=== PATIENT | male | born 1950 | race Caucasian/White ===

== ENCOUNTER 2019-12-24 17:03 | Emergency (ER) | payer MEDICARE ==
--- OUTSIDE RECORDS SUMMARY | 2019-12-24 17:05 | XMS REPORT ---
:1950 Author Organization [employer] Care Team Providers Name Role Phone Justin Petersen Provider Role Unavailable Allergies, Adverse Reactions, Alerts Substance Reaction Event Type N.K.D.A. Info Not Available Non Drug Allergy Problems Problem Type Condition Code Onset Dates Condition Status Problem Piriformis syndrome of left side G57.02 Active Problem Sciatica of left side M54.32 Active Assessment Piriformis syndrome of left side G57.02 Active Assessment Pain of left hip joint M25.552 Active Assessment Sciatica of left side M54.32 Active Medications Medication Code System Code Instructions Start Date End Date Status Dosage Allopurinol [facility] 76020-494 Active not defined 11-07 Lisinopril [facility] 63224-845 Active not defined - Bisoprolol [facility] 84690-936 Active not defined Fumarate 1- Results No Known Results Summary Purpose [employer] Submission
[2019-12-24] MEDS ORDERED: ONDANSETRON 4 MG/2 ML VIAL ONE (17:14)
[2019-12-24] MEDS ORDERED: MORPHINE 4 MG/ML SYR ONE (17:14)
[2019-12-24] MEDS ORDERED: FENTANYL CITR 100 MCG/2 ML ONE (17:23)
[2019-12-24 17:25] LABS: Basophils % 0.7 % (0-1.3); Hematocrit 44.2 % (39.6-49.0); Lymphocytes % 24.6 % (15.3-44.8); MPV 7.9 fL (7.6-11.3); RBC Red Blood Cell Count 4.46 M/uL (4.33-5.43)
[2019-12-24] MEDS ORDERED: NA CHLORIDE 0.9% 1,000 ML ONE ×2 (17:30→17:53)
[2019-12-24 17:31] LABS: Protime INR 0.94
[2019-12-24 17:43] LABS: Albumin 3.9 g/dL (3.4-5.0); Bilirubin Total 0.4 mg/dL (0.2-1.0); Potassium 3.6 mmol/L (3.5-5.1)
--- NOTE | 2019-12-24 18:08 | ER ---
Nurse's Notes [facility] Name: lAexandru Elizabeth Age: 69 yrs Sex: Male : 1950 Arrival Date: 12/24/2019 Time: 17:04 Bed 4 Private MD: Cheo Kay Diagnosis: Toxic effect of coral snake venom, undetermined Presentation: 12/24 17:06 Presenting complaint: Patient states: Bitten by a coral snake approximately 30 minutes ss ago to L thumb. Redness and swelling noted. Pt c/o severe pain. Transition of care: patient was not received from another setting of care. Onset of symptoms was December 24, 2019. Risk Assessment: Do you want to hurt yourself or someone else? Patient reports no desire to harm self or others. Initial Sepsis Screen: Does the patient meet any 2 criteria? RR > 20 per min. Does the patient have a suspected source of infection? No. Patient's initial sepsis screen is negative. Care prior to arrival: None. 17:06 Method Of Arrival: Ambulatory ss 17:06 Acuity: MINI 1 ss Triage Assessment: 17:05 Bite description: bite sustained to dorsal aspect of distal phalanx of left thumb and tw2 dorsal aspect of proximal phalanx of left thumb was sustained 30-60 minutes ago. by a snake, animal information: vaccination(s) is not applicable. General: Appears uncomfortable, Behavior is calm, cooperative, appropriate for age. Pain: Complains of pain in dorsal aspect of distal phalanx of left thumb and dorsal aspect of proximal phalanx of left thumb. Historical: - Allergies: 17:11 No Known Allergies; ss - Home Meds: 17:34 Lisinopril Oral [Active]; Metoprolol Tartrate Oral [Active]; tw2 - PMHx: 17:35 Hypertension; tw2 - Immunization history:: Adult Immunizations up to date, Last tetanus immunization: unknown. - Coronavirus screen:: The patient has NOT traveled to [place] in the past 14 days. Proceed with normal triage process as indicated. - Social history:: Smoking status: Patient denies any tobacco usage or history of. - Ebola Screening: : Patient denies exposure to infectious person Patient denies travel to an Ebola-affected area in the 21 days before illness onset. Screenin:11 Abuse screen: Denies threats or abuse. Denies injuries from another. Nutritional ss screening: No deficits noted. Tuberculosis screening: Never had TB. Fall Risk None identified. Assessment: 17:05 General: Appears in no apparent distress. Behavior is calm, cooperative, appropriate tw2 for age. Pain: Complains of pain in dorsal aspect of proximal phalanx of left thumb and dorsal aspect of distal phalanx of left thumb. Neuro: Level of Consciousness is awake, alert, obeys commands, Oriented to person, place, time, situation. Cardiovascular: Heart tones S1 S2 Patient's skin is warm and dry. Respiratory: Airway is patent Respiratory effort is even, unlabored, Respiratory pattern is regular, symmetrical, Breath sounds are clear bilaterally. GI: No signs and/or symptoms were reported involving the gastrointestinal system. Abdomen is flat, Bowel sounds present X 4 quads. : No signs and/or symptoms were reported regarding the genitourinary system. EENT: No signs and/or symptoms were reported regarding the EENT system. Derm: Skin is intact, Skin is pink, warm \T\ dry. Injury Description: Bite sustained to dorsal aspect of proximal phalanx of left thumb and dorsal aspect of distal phalanx of left thumb is redness and swelling noted around LEFT dorsum of thumb. 17:41 Reassessment: spoke with Gene at [facility] - Case # [id number] - give NO ICE to tw2 site, NO NSAIDS, NO ABX, NO CORTICOSTEROIDS, observed for at least 24 hours for neurological changes, (ie: dizziness, weakness, confusion, restlessness, respiratory paralysis is major concern,) even if asymptomatic at arrival pt needs to observe for delayed symptom changes which can occur up to 24 hrs, update tetanus if >5 yrs, give 1L NS bolus then maintenance fluids after, elevate extremity, Labs: cbc, electrolytes, coags- fibrinogen, pt/ptt, urinalysis. 17:42 Reassessment: black sharpie used around line of redness at this time. tw2 18:11 Reassessment: Hospitalist Dr. Hernandez at bedside at this time discussing pts pain and tw2 possible need for transfer to higher level of care. 18:22 Reassessment: Patient and/or family updated on plan of care and expected duration. Pain tw2 level reassessed. Patient is alert, oriented x 3, equal unlabored respirations, skin warm/dry/pink. pain 3/10 Patient states feeling better. 19:21 Reassessment: Patient and/or family updated on plan of care and expected duration. Pain tw2 level reassessed. Patient is alert, oriented x 3, equal unlabored respirations, skin warm/dry/pink. Patient states feeling better. Vital Signs: 17:11 BP 141 / 89; Pulse 73; Resp 22; Temp 98.1(O); Pulse Ox 97% on R/A; Weight 95.25 kg; ss Height 5 ft. 9 in. (175.26 cm); Pain 10/10; 17:42 BP 143 / 88; Pulse 75; Resp 17; Pulse Ox 97% on R/A; ss 18:20 Pain 3/10; tw2 18:21 BP 142 / 84; Pulse 75; Resp 14; Pulse Ox 88% on R/A; tw2 17:11 Body Mass Index 31.01 (95.25 kg, 175.26 cm) ss 18:21 pt placed on o2 via nc at this time, o2 at 97% provider notified tw2 ED Course: 17:04 Patient arrived in ED. ag5 17:04 Cheo Kay MD is Private Physician. ag5 17:08 Ady Nuñez MD is Attending Physician. tw4 17:10 Verónica Rodriguez, JAMEL is Primary Nurse. tw2 17:10 Triage completed. ss 17:11 Arm band placed on right wrist. ss 17:11 Patient has correct armband on for positive identification. Placed in gown. Bed in low ss position. Call light in reach. 17:12 Patient has correct armband on for positive identification. Placed in gown. Bed in low mh5 position. Call light in reach. Side rails up X2. Warm blanket given. monitor car operator on. Pulse ox on. NIBP on. 17:15 Inserted saline lock: 20 gauge in right antecubital area, using aseptic technique. tw2 Blood collected. 17:24 CMP Sent. tw2 17:24 CBC with Diff Sent. tw2 17:24 Ptt, Activated Sent. tw2 17:24 PT-INR Sent. tw2 17:58 Ananth Hernandez MD is Hospitalizing Provider. tw4 18:34 Inserted saline lock: 22 gauge in right hand, using aseptic technique. tw2 18:34 IV discontinued, intact, bleeding controlled, Pressure dressing applied, infiltration tw2 noted. 18:41 No provider procedures requiring assistance completed. tw2 18:50 Report given to JAMEL Espinoza at [facility] at this time. tw2 Administered Medications: 17:11 Drug: Zofran 4 mg Route: IVP; Site: right antecubital; tw2 17:25 Follow up: Response: No adverse reaction tw2 17:13 Drug: morphine 4 mg Route: IVP; Site: right antecubital; tw2 17:24 Follow up: Response: No adverse reaction; Pain is unchanged, physician notified; RASS: tw2 Alert and Calm (0) 17:20 Drug: NS 0.9% 1000 ml Route: IV; Rate: 1 bolus; Site: right antecubital; tw2 17:20 Drug: fentaNYL (PF) 25 mcg Route: IVP; Site: right antecubital; tw2 17:59 Follow up: Response: No adverse reaction; Pain is unchanged, physician notified tw2 17:54 Drug: fentaNYL (PF) 25 mcg {Note: rass o.} Route: IVP; Site: right antecubital; tw2 18:11 Follow up: Response: No adverse reaction; Pain is unchanged, physician notified; RASS: tw2 Alert and Calm (0) 18:11 Drug: Dilaudid 1 mg {Note: RASS 0.} Route: IVP; Site: right antecubital; tw2 18:20 Follow up: Pain 3/10 Adult; Response: No adverse reaction; Pain is decreased; RASS: tw2 Alert and Calm (0) 18:44 Drug: NS 0.9% 1000 ml Route: IV; Rate: 125 ml/hr; Site: right hand; tw2 19:00 Drug: Tetanus-Diphtheria Toxoid Adult 0.5 ml {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 Exp: tw2 11/22/2021. Lot #: [id number]. } Route: IM; Site: right deltoid; 19:05 Follow up: Response: No adverse reaction tw2 Outcome: 18:06 Decision to Hospitalize by Provider. tw4 18:41 ER care complete, transfer ordered by . tw4 19:21 Patient left the ED. jb4 19:21 Transferred by ground EMS to [facility]. tw2 19:21 Condition: stable 19:21 Instructed on the need for transfer. Signatures: Roula Arrieta RN RN ss Verónica Rodriguez RN RN tw2 Pete Bunn RN RN 4 Nora Terry [facility] Ady Nuñez MD MD tw4 Bhavya Brennan 5 Corrections: (The following items were deleted from the chart) 17:48 17:42 BP 143 / 88; Pulse 15bpm; Resp 17bpm; Pulse Ox 97% RA; tw2 ss 19:30 18:11 Reassessment: Hospitalist Dr. Hernandez at bedside at this time. tw2 tw2 19:30 17:41 Reassessment: spoke with Gene at [facility] - Case # [id number] - give NO ICE, tw2 NO NSAIDS, NO ABX, NO CORTICOSTERIODS, observed for at least 24 hours for neurological changes, (ie: dizziness, weakness, confusion, restlessness, respiratory paralysis is major concern, even if asymptomatic at arrival pt need to observe for delayed symptom changes, update tetanus if >5 yrs, give 1L NS bolus then maintenance fluids after, Labs: cbc, electrolytes, coags- fibrinogen, pt/ptt, urinalysis tw2 19:31 17:41 Reassessment: spoke with Gene at [facility] - Case # [id number] - give NO ICE tw2 to site, NO NSAIDS, NO ABX, NO CORTICOSTEROIDS, observed for at least 24 hours for neurological changes, (ie: dizziness, weakness, confusion, restlessness, respiratory paralysis is major concern,) even if asymptomatic at arrival pt needs to observe for delayed symptom changes which can occur up to 24 hrs, update tetanus if >5 yrs, give 1L NS bolus then maintenance fluids after, Labs: cbc, electrolytes, coags- fibrinogen, pt/ptt, urinalysis tw2
[2019-12-24] MEDS ORDERED: HYDROMORPHONE HCL 0.5 MG/0.5 ML INJ ONE (18:10)
--- NOTE | 2019-12-24 18:42 | EDPHYS ---
Physician Documentation [facility] Name: Alexandru Elizabeth Age: 69 yrs Sex: Male : 1950 Arrival Date: 12/24/2019 Time: 17:04 Bed 4 Private MD: Cheo Kay ED Physician Ady Nuñez HPI: 12/24 18:47 This 69 yrs old Male presents to ER via Ambulatory with complaints of Snake tw4 bite. 18:47 The patient was bitten on the dorsal aspect of proximal phalanx of left thumb and tw4 palmar aspect of proximal phalanx of left thumb, by a snake. Onset: The symptoms/episode began/occurred today. Animal information: coral snake. Secondary to the bite the patient reports a puncture wound, swelling, warmth. Associated signs and symptoms: The patient has no apparent associated signs or symptoms. The patient has not experienced similar symptoms in the past. Historical: - Allergies: 17:11 No Known Allergies; ss - Home Meds: 17:34 Lisinopril Oral [Active]; Metoprolol Tartrate Oral [Active]; tw2 - PMHx: 17:35 Hypertension; tw2 - Immunization history:: Adult Immunizations up to date, Last tetanus immunization: unknown. - Coronavirus screen:: The patient has NOT traveled to [place] in the past 14 days. Proceed with normal triage process as indicated. - Social history:: Smoking status: Patient denies any tobacco usage or history of. - Ebola Screening: : Patient denies exposure to infectious person Patient denies travel to an Ebola-affected area in the 21 days before illness onset. ROS: 18:47 Constitutional: Negative for fever, chills, and weight loss, Eyes: Negative for injury, tw4 pain, redness, and discharge, Cardiovascular: Negative for chest pain, palpitations, and edema, Respiratory: Negative for shortness of breath, cough, wheezing, and pleuritic chest pain, Abdomen/GI: Negative for abdominal pain, nausea, vomiting, diarrhea, and constipation, Back: Negative for injury and pain, Skin: Negative for injury, rash, and discoloration, Neuro: Negative for headache, weakness, numbness, tingling, and seizure. 18:47 MS/extremity: Positive for injury or acute deformity, pain, swelling, tenderness, warmth. Exam: 18:47 Constitutional: This is a well developed, well nourished patient who is awake, alert, tw4 and in no acute distress. Head/Face: Normocephalic, atraumatic. Chest/axilla: Normal chest wall appearance and motion. Nontender with no deformity. No lesions are appreciated. Cardiovascular: Regular rate and rhythm with a normal S1 and S2. No gallops, murmurs, or rubs. Normal PMI, no JVD. No pulse deficits. Respiratory: Lungs have equal breath sounds bilaterally, clear to auscultation and percussion. No rales, rhonchi or wheezes noted. No increased work of breathing, no retractions or nasal flaring. Abdomen/GI: Soft, non-tender, with normal bowel sounds. No distension or tympany. No guarding or rebound. No evidence of tenderness throughout. 18:47 Musculoskeletal/extremity: Extremities: noted in the dorsal aspect of proximal phalanx of left thumb and palmar aspect of proximal phalanx of left thumb: ecchymosis, erythema. Vital Signs: 17:11 BP 141 / 89; Pulse 73; Resp 22; Temp 98.1(O); Pulse Ox 97% on R/A; Weight 95.25 kg; ss Height 5 ft. 9 in. (175.26 cm); Pain 10/10; 17:42 BP 143 / 88; Pulse 75; Resp 17; Pulse Ox 97% on R/A; ss 18:20 Pain 3/10; tw2 18:21 BP 142 / 84; Pulse 75; Resp 14; Pulse Ox 88% on R/A; tw2 17:11 Body Mass Index 31.01 (95.25 kg, 175.26 cm) ss 18:21 pt placed on o2 via nc at this time, o2 at 97% provider notified tw2 MDM: 17:08 Patient medically screened. tw4 18:47 Differential diagnosis: superficial laceration, tendon injury, vascular injury. Data tw4 reviewed: vital signs, nurses notes. Counseling: I had a detailed discussion with the patient and/or guardian regarding: the historical points, exam findings, and any diagnostic results supporting the discharge/admit diagnosis. ED course: D/W Dr Sanders from [facility] agrees to accept patient for higher level of care. 12/24 17:10 Order name: PT-INR tw4 02/17 17:10 Order name: Ptt, Activated tw4 12/24 17:10 Order name: CBC with Diff tw4 12/24 17:10 Order name: CMP tw4 12/24 17:31 Order name: CBC with Automated Diff; Complete Time: 18:21 EDMS 12/24 18:51 Interpretation: Within normal limits. tw4 12/24 17:32 Order name: Protime (+INR); Complete Time: 18:21 EDMS 12/24 18:51 Interpretation: Within normal limits: PT 11.1. tw4 12/24 17:32 Order name: PTT, Activated Partial Thromb; Complete Time: 18:21 EDMS 12/24 18:51 Interpretation: Within normal limits: PTT 25.4. 12/24 17:44 Order name: Comprehensive Metabolic Panel; Complete Time: 18:21 EDMS 12/24 18:51 Interpretation: Normal except: GFR 84. tw4 12/24 17:16 Order name: IV Start; Complete Time: 17:16 tw2 Administered Medications: 17:11 Drug: Zofran 4 mg Route: IVP; Site: right antecubital; tw2 17:25 Follow up: Response: No adverse reaction tw2 17:13 Drug: morphine 4 mg Route: IVP; Site: right antecubital; tw2 17:24 Follow up: Response: No adverse reaction; Pain is unchanged, physician notified; RASS: tw2 Alert and Calm (0) 17:20 Drug: NS 0.9% 1000 ml Route: IV; Rate: 1 bolus; Site: right antecubital; tw2 17:20 Drug: fentaNYL (PF) 25 mcg Route: IVP; Site: right antecubital; tw2 17:59 Follow up: Response: No adverse reaction; Pain is unchanged, physician notified tw2 17:54 Drug: fentaNYL (PF) 25 mcg {Note: rass o.} Route: IVP; Site: right antecubital; tw2 18:11 Follow up: Response: No adverse reaction; Pain is unchanged, physician notified; RASS: tw2 Alert and Calm (0) 18:11 Drug: Dilaudid 1 mg {Note: RASS 0.} Route: IVP; Site: right antecubital; tw2 18:20 Follow up: Pain 3/10 Adult; Response: No adverse reaction; Pain is decreased; RASS: tw2 Alert and Calm (0) 18:44 Drug: NS 0.9% 1000 ml Route: IV; Rate: 125 ml/hr; Site: right hand; tw2 19:00 Drug: Tetanus-Diphtheria Toxoid Adult 0.5 ml {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 Exp: tw2 11/22/2021. Lot #: [id number]. } Route: IM; Site: right deltoid; 19:05 Follow up: Response: No adverse reaction tw2 Disposition: 12/24/19 18:41 Transfer ordered to [facility]. Diagnosis is Toxic effect of coral snake venom, undetermined. - Reason for transfer: Higher level of care. - Accepting physician is Dr Sanders. - Condition is Stable. - Problem is new. - Symptoms are unchanged. Signatures: Dispatcher [employer] EDMS Roula Arrieta RN Verónica Wheeler RN RN tw2 Pete Bunn RN RN jb4 Ady Nuñez MD MD tw4 Corrections: (The following items were deleted from the chart) 18:39 18:06 Hospitalization Ordered by Ananth Hernandez MD for Inpatient Admission. Preliminary tw4 diagnosis is Toxic effect of unspecified snake venom. Bed requested for Telemetry/MedSurg (Inpatient). Status is Inpatient Admission. Condition is Stable. Problem is new. Symptoms have improved. tw4 19:21 18:41 12/24/2019 18:41 Transfer ordered to [facility]. Diagnosis is Toxic jb4 effect of coral snake venom, undetermined. Reason for transfer: Higher level of care. Accepting physician is Dr Sanders. Condition is Stable. Problem is new. Symptoms are unchanged. tw4
[2019-12-24] MEDS ORDERED: TETANUS & DIPHTHERIA TOX,ADULT 0.5 ML VIAL ONE (19:01)
[2019-12-24 22:18] VITALS: TEMP 98.1
[2019-12-24 22:22] VITALS: BP 142/84; O2SAT 88
== END 2019-12-24 19:21 | disposition short-term general hospital (02) ==
LOC: ER 17:03
DX: T63.021A Toxic effect of coral snake venom, accidental (unintentional), initial encounter (principal); Y92.9 Unspecified place or not applicable; I10 Essential (primary) hypertension
CPT/HCPCS: 85025; 36415; 85610; 85730; 80053; 90471; 90714; 96375; 96374; 99291; 99292; J3010; J1170; J7030 ×2; J2405